=== PATIENT | female | born 1980 | race Caucasian/White ===

== ENCOUNTER 2017-02-12 11:35 | Emergency (ER) | payer OTHER ==
[2017-02-12 11:36] VITALS: BMI 27.4
[2017-02-12 11:51] VITALS: RESP 16; TEMP 98
--- NOTE | 2017-02-12 12:11 | C.PDOC ---
History Of Present Illness 36 y/o female presents to the ED complaining of menstrual period that is "heavier" than usual. Patient is unable to estimate how many pads she is using. She reports she does not have a tripe washer and she does not think she is . Patient denies any abdominal pain, fever, dysuria, vomiting, or other complaints. Time Seen by Provider: 02/12/17 11:53 Chief Complaint (Nursing): Female Genitourinary History Per: Patient History/Exam Limitations: no limitations Onset/Duration Of Symptoms: Days, Gradual, Persistent Current Symptoms Are (Timing): Still Present Recent travel outside of the [place]: No Past Medical History Reviewed: Historical Data, Nursing Documentation, Vital Signs Vital Signs: Last Vital Signs Temp 98 F 02/12/17 11:45 Pulse 81 02/12/17 13:25 Resp 16 02/12/17 13:25 BP 117/78 02/12/17 13:25 Pulse Ox 99 02/12/17 13:25 - Medical History PMH: No Chronic Diseases Surgical History: No Surg Hx Family History: States: No Known Family Hx - Social History Hx Tobacco Use: No Hx Alcohol Use: No Hx Substance Use: No - Immunization History Hx Tetanus Toxoid Vaccination: No Hx Influenza Vaccination: No Hx Pneumococcal Vaccination: No Review Of Systems Except As Marked, All Systems Reviewed And Found Negative. Constitutional: Negative for: Fever Gastrointestinal: Negative for: Vomiting, Abdominal Pain Genitourinary: Positive for: Vaginal Bleeding (on menstrual period, heavier than usual). Negative for: Dysuria Physical Exam - Physical Exam Appears: Non-toxic, No Acute Distress Skin: Normal Color, Warm, Dry Head: Atraumatic, Normacephalic Eye(s): bilateral: Normal Inspection, PERRL Neck: Normal ROM Chest: Symmetrical Cardiovascular: Rhythm Regular Respiratory: Normal Breath Sounds, No Rales, No Rhonchi, No Wheezing Gastrointestinal/Abdominal: Normal Exam, Soft, No Tenderness Back: Normal Inspection, No CVA Tenderness Extremity: Normal ROM, No Swelling Neurological/Psych: Oriented x3, Normal Speech, Normal Cognition ED Course And Treatment - Laboratory Results Result Diagrams: 02/12/17 12:23 02/12/17 12:23 Lab Interpretation: Normal Urine POC: Negative O2 Sat by Pulse Oximetry: 98 (ra) Pulse Ox Interpretation: Normal Progress Note: Blood Work, Urinalysis, and Urine HCG were ordered. Reassessment Condition: Improved Disposition Counseled Patient/Family Regarding: Studies Performed, Diagnosis, Need For Followup, Rx Given - Disposition Referrals: [facility] [Outside] [facility] [Outside] Disposition: HOME/ ROUTINE Disposition Time: 13:00 Condition: GOOD Additional Instructions: Follow up with PMD or clinic for further evaluation Instructions: Dysfunctional Uterine Bleeding (ED) - POA Present On Arrival: None - Clinical Impression Clinical Impression: DUB (dysfunctional uterine bleeding) - PA / CHAIRMAN / Resident Statement MD/DO has reviewed & agrees with the documentation as recorded. - Scribe Statement The provider has reviewed the documentation as recorded by the Scribe (Laurence Davenport) All medical record entries made by the Scribe were at my direction and personally dictated by me. I have reviewed the chart and agree that the record accurately reflects my personal performance of the history, physical exam, medical decision making, and the department course for this patient. I have also personally directed, reviewed, and agree with the discharge instructions and disposition.
[2017-02-12 12:30] LABS: BASO # 0.1 K/uL (0.0-0.2); BASO % 0.9 % (0.0-2.0); EOS # 0.4 K/uL (0.0-0.7); EOS % 3.6 % (0.0-4.0); LYMPH # 2.1 K/uL (1.0-4.3); LYMPH % 20.4 % (20.0-40.0); MEAN CELL VOLUME 83.2 fL (81.0-99.0); MEAN CORPUSCULAR HEMOGLOBIN 27.3 pg (27.0-31.0); MEAN CORPUSCULAR HGB CONC 32.9 g/dL (33.0-37.0); MONO # 0.6 K/uL (0.0-0.8); RED CELL DISTRIBUTION WIDTH 15.5 % (11.5-14.5); WHITE BLOOD COUNT 10.2 K/uL (4.8-10.8)
[2017-02-12 12:35] LABS: CHLORIDE 99 mmol/L (98-107); POTASSIUM 3.8 mmol/L (3.6-5.2); SODIUM 138 mmol/L (132-148)
[2017-02-12 12:38] LABS: BLOOD UREA NITROGEN 10 mg/dL (7-17); CARBON DIOXIDE 25 mmol/L (22-30); GFR AFRICAN-AMERICAN > 60
[2017-02-12 12:39] LABS: CALCIUM 8.9 mg/dl (8.6-10.4); GLUCOSE,RANDOM 100 mg/dL (65-105)
[2017-02-12 12:49] LABS: RBC URINE 2 /hpf (0-3); URINE BACTERIA RARE (<OCC); URINE BILIRUBIN NEGATIVE (NEGATIVE); URINE BLOOD 2+ (NEGATIVE); URINE COLOR Straw (YELLOW); URINE GLUCOSE (UA) NORMAL (Normal); URINE KETONE NEGATIVE (NEGATIVE); URINE LEUKOCYTE ESTERASE NEG Leu/uL (Negative); URINE PROTEIN NEGATIVE (NEGATIVE); URINE UROBILINOGEN NORMAL mg/dL (0.2-1.0); WBC URINE < 1 /hpf (0-5)
[2017-02-12 13:29] VITALS: BP 117/78; PULSE 81
[2017-02-12 17:47] VITALS: O2SAT 98
== END 2017-02-12 13:29 | disposition home or self-care (01) ==
LOC: C.ER 11:35
DX: N93.8 Other specified abnormal uterine and vaginal bleeding (principal)